=== PATIENT | male | born 1955 ===

== ENCOUNTER 2022-12-07 06:53 | Day surgery (SDC) | payer OTHER | END 2022-12-07 11:50 | disposition home or self-care (01) | LOC: AMB-ENDOS 06:53 | PROVIDERS: ATTEND Surgery | DX: K63.5 Polyp of colon (principal); K62.5 Hemorrhage of anus and rectum; R19.5 Other fecal abnormalities; Z86.010 Personal history of colon polyps; K57.30 Diverticulosis of large intestine without perforation or abscess without bleeding; K64.8 Other hemorrhoids; Z20.822 Contact with and (suspected) exposure to COVID-19 ==